=== PATIENT | male | born 1980 | race Caucasian/White ===

== ENCOUNTER → 2021-10-10 03:44 | Outpatient (CLI) | payer OTHER, SELFPAY ==
[2021-10-11 22:39] LABS: SARS-CoV-2 RNA PCR Negative
== END ==
PROVIDERS: PCP Internal Medicine; Visit Provider Orthopaedic Surgery
DX: Z01.812 Encounter for preprocedural laboratory examination (principal); Z20.822 Contact with and (suspected) exposure to COVID-19
CPT/HCPCS: C9803; U0003; U0005

== ENCOUNTER 2021-10-10 08:10 | Outpatient (CLI) | payer OTHER, SELFPAY ==
--- NOTE | 2021-10-10 08:00 | ECG_ITS ---
Measurements Intervals [place] Rate: 94 P: 47 NE: 140 QRS: -50 QRSD: 85 T: 87 QT: 332 QTc: 416 Interpretive Statements SINUS RHYTHM INCOMPLETE RIGHT BUNDLE BRANCH BLOCK LEFT ANTERIOR FASCICULAR BLOCK VOLTAGE CRITERIA FOR LVH BORDERLINE T WAVE ABNORMALITY- LAT/HIGH LAT LEADS BASELINE ARTIFACT- I, III, AVR, AVL ABNORMAL ECG Electronically Signed On 10-10-2021 8:35:48 [employer] by Rick Diaz D.O.
[2021-10-10 09:25] LABS: Anion Gap 3 mmol/L (8-16); Blood Urea Nitrogen 18 mg/dL (9-20); Calcium 8.9 mg/dL (8.4-10.2); Carbon Dioxide 31 mmol/L (22-30); Chloride 103 mmol/L (98-107); Estimated Glomerular Filt Rate 52; Glucose 163 mg/dL (65-110); Sodium 137 mmol/L (137-145)
== END 2021-10-10 08:11 | disposition home or self-care (01) ==
LOC: ANHSURGERY 08:14
PROVIDERS: Anesthesiology; PCP Internal Medicine; Visit Provider Orthopaedic Surgery
DX: Z01.818 Encounter for other preprocedural examination (principal); E10.9 Type 1 diabetes mellitus without complications; I10 Essential (primary) hypertension; I45.2 Bifascicular block
CPT/HCPCS: 36415; 80048; 93005

== ENCOUNTER 2021-10-13 01:28 | Day surgery (SDC) | payer OTHER, SELFPAY ==
[2021-10-07 08:46] VITALS: BMI 29.9
--- NOTE | 2021-10-07 08:55 | PC.NURSE ---
Report to the Outpatient Waiting Room, entrance under the green pavilion located off [facility], at time 1:00 PM on date 10/13/21. OR Time: 3:00 PM. - You will be asked a series of questions to screen for COVID 19 for your protection. - A mask is required within the hospital. - No visitors are allowed at this time. Preoperative COVID Testing Requirements: TO EMAIL POSITIVE RESULTS TO [email or web address] No COVID Test needed if: (proof is required; if not received patient will have Rapid Test prior to entry) - Patient has received COVID Vaccine at least 14 days prior to procedure date or - Patient has positive COVID test result within last 90 days of surgery date. COVID Test needed if above criteria is not met If not COVID vaccinated a COVID test must be conducted within 72 hours of surgery and patient is asked to isolate self from time of testing until procedure. You will go to the [facility] for your COVID testing. The [facility] Testing site is located at the corner of [address] [facility]. You will only be called if COVID results are positive and your surgeon may reschedule your elective surgery date. Patients may have clear liquids (water, carbonated beverages, clear teas, apple juice) until 3 hours prior to surgery (12:00 PM) with a maximum of 20 ounces. - No food from midnight until time of surgery Take the following medications with a SIP of water the morning of surgery: 1/2 MORNING INSULIN DOSE (UNLESS BLOOD SUGAR LOW) Medications to discontinue per physician: N/A Date to take last dose: N/A Please no make-up, nail icelandic, hairspray, perfume, deodorant, or body powder the day of surgery. No jewelry (including any body piercings) or valuables the day of surgery, leave them at home. Please take a shower or bath the night before, or the morning of, surgery with an antibacterial soap. Wear comfortable, loose fitting clothing. - Jewelry must be removed prior to entering the operating room. Rings and piercings that are not removed may be cut off. - The hospital will not accept responsibility for valuables. - Please leave all valuables, including medications, at home the day of surgery. If you are going home after surgery, a licensed tanker truck driver must drive you home. - NO public transportation without another adult. - We recommend that an adult stay with you for 24 hours following discharge. - We also recommend that you do not drive, make important decision, drink alcoholic beverages, or take any drugs that were not prescribed by your health care provider for at least 24 hours after your discharge time. Follow any additional instructions given to you from your surgeon. Telephone instructions given to ZANDER TAMAYO and asked if any additional questions and then verbalized understanding. Patient advised to call surgeon office or pre surgery nurse liaison [phone] if any additional questions.
[2021-10-13 12:00] VITALS: BP 171/94; PULSE 90; RESP 16; TEMP 36.4; O2SAT 99
[2021-10-13] MEDS: ACETAMINOPHEN 500 MG TABLET 1000 MG PO (12:09)
[2021-10-13] MEDS: KETOROLAC 15 MG/ML VIAL (*BKC) IV PUSH (12:10)
--- NOTE | 2021-10-13 12:12 | WPDANESEPPF ---
Anes - Initial Pre Proc Eval Procedure: Operation Date: 10/13/21 13:30 Proposed Procedures p Right Third Trigger Finger Release - John Moncada MD Date/Time: 10/13/21 12:12 Surgeon: John Moncada MD Pre Op Diagnosis: right third finger trigger release Patient Data Age: 41 Gender: M Height: 1.8 m Weight: 97.52 kg Allergies Allergy/AdvReac Type Severity Reaction Status Date / Time diphenhydramine Allergy Mild Unknown Verified 10/13/21 12:30 [From Benadryl Allergy] ibuprofen Allergy Mild stomach Verified 10/13/21 12:30 bleeding Home Medications Medication Instructions Recorded Confirmed Type insulin NPH-regular 70-30 U-100 40 unit SUBCUT BID 01/01/21 10/07/21 History insulin 100 unit/mL subcutaneous pen losartan 100 mg tablet 100 mg PO DAILY 01/01/21 10/07/21 History Patient hx anesthesia problems: none Family hx anesthesia problems: none Results Review: All pre-operative results and documents have been reviewed as part of the pre-operative evaluation. [facility] Past Medical History Medical History Diabetes pt notes last a1c to be 7.0 in july 2020 Low testosterone Surgical History Surgical History Left forearm fracture left both-bone forearm fracture ORIF May 1996 Trigger finger of right hand right fourth finger release Family History Family History Mother Cancer Other Diabetes mellitus Hypertension Social History Social History Smoking packs per day: 1 Smoking cigarettes per day: 20.0 Years smoked: 15 Smoking pack-years: 15.00 Smoking status: Former smoker Tobacco type: cigarettes Smoking end date: 03/04/21 Alcohol intake: never Substance use: never Substance use type: does not use Living arrangements: with family Gender identity (if verbalized by the patient): Male Spiritual care concerns: No Anes - Eval Final PreProcedure Day of Procedure 10/13/21 12:12 Patient weight: obese Heart: regular rate and rhythm Lungs: clear to auscultation and normal air movement Airway: Mallampati scale class II Neurological: alert and oriented Last oral intake: >/= 8 hours ASA classification: III Emergent: no Anesthetic plan: proceed Anesthesia type and monitoring: general GIVS and standard monitoring Results Review: All pre-operative results and documents have been reviewed as part of the pre-operative evaluation. Informed Consent: The patient's anesthetic plan and its attendant risks and benefits were discussed with the patient/family/POA. Questions were solicited and answers provided to the satisfaction of the patient/family/POA.
[2021-10-13] MEDS: LACTATED RINGERS 1,000 ML 30 ML IV CONT (12:15)
[2021-10-13 12:28] LABS: Glucose Point of Care 140 mg/dl (65-105)
--- NOTE | 2021-10-13 12:48 | WPDHPUPDATE1 ---
History and Physical Update Update Date/Time: 10/13/21 12:48 History and Physical has been reviewed, including an updated exam of the patient. There are NO changes in the patient's condition. Risks, benefits, and alternatives have been discussed and questions answered. Patient agrees to proceed with procedure.
--- NOTE | 2021-10-13 12:52 | WPDHPUPDATE1 ---
History and Physical Update Update Date/Time: 10/13/21 12:52 History and Physical has been reviewed, including an updated exam of the patient. There are NO changes in the patient's condition. Risks, benefits, and alternatives have been discussed and questions answered. Patient agrees to proceed with procedure.
[2021-10-13] MEDS: ceFAZolin 2 GM/D5W 50 ML 2 GM/50 ML BAG IVPB (13:05)
[2021-10-13] MEDS: BUPIVACAINE HCL 0.25% PF 30 ML VIAL INFILTRATE (13:22)
[2021-10-13 13:30] VITALS: BP 128/78; PULSE 85; RESP 16; O2SAT 100
--- NOTE | 2021-10-13 13:33 | W.PM.PROC2 ---
Procedure Note - Detailed Date of Procedure 10/13/21 Pre-op Diagnosis right third finger trigger release Post-op Diagnosis same Procedure Performed Right long (3rd) finger trigger finger release Surgeon John Moncada MD Anesthesia MAC and local Description of Procedure The patient was identified and proper site identified. He was taken to the operating room and transferred to the OR table placing supine taking care to pad the torso and extremities. IV sedation was administered. A nonsterile tourniquet was placed high on the right arm which was prepped and draped in the usual sterile fashion. Several cc of .25 % plain Marcaine was injected into the subcutaneous tissue over the A1 nicolás of the right third digit. The extremity was exsanguinated and the tourniquet was inflated to 200 mmHg remaining up for about five minutes. A longitudinal incision was made over the A1 nicolás. Subcutaneous tissue was bluntly dissected down to the nicolás while protecting the neurovascular bundles. The A1 nicolás was identified and then transected longitudinally in line with the incision and tendons. The tendons were delivered into the wound verifying the adequacy of the release. Hemostasis was carried out. The wound was irrigated with sterile saline. Skin edges were reapproximated with 4-0 nylon suture. Sterile dressing was applied. Tourniquet was released. He tolerated the procedure well and was transferred back to a cart, then taken to the recovery area in stable condition. There were no known intraoperative complications. Estimated blood loss was negligible. Perioperative antibiotics were administered. Estimated Blood Loss 1 Tourniquet Time 5 Drains No Packing No Pathology none sent Complications No immediate complications Condition stable Disposition PACU
[2021-10-13 14:02] LABS: Glucose Point of Care 85 mg/dl (65-105)
[2021-10-13 14:15] VITALS: BP 125/70; PULSE 86; RESP 16
[2021-10-13 14:30] VITALS: BP 130/90; PULSE 84; RESP 16
== END 2021-10-13 14:40 | disposition home or self-care (01) ==
PROVIDERS: PCP Internal Medicine; Visit Provider Orthopaedic Surgery
PROC: (CPT 26055; principal; 2021-10-13 13:30)
DX: M65.331 Trigger finger, right middle finger (principal); E11.9 Type 2 diabetes mellitus without complications; Z79.4 Long term (current) use of insulin; Z87.891 Personal history of nicotine dependence; E66.9 Obesity, unspecified; Z68.30 Body mass index [BMI] 30.0-30.9, adult
CPT/HCPCS: 26055; 36415; 80048; 82948; 93005; A9270; C9803; J0690; J1100; J1885; J2250; J2405; J2704; J7120; U0003; U0005